=== PATIENT | female | born 1965 | race Caucasian/White ===

== ENCOUNTER 2017-05-07 19:37 | Emergency (ER) | payer MEDICAID ==
[~2017-05-07] VITALS: Ht 147.3 cm; Wt 71.5 kg
[~2017-05-07 19:37] MED LIST: AMLO-145 PO; AMLO5TAB4 PO; ASPI81TA3 PO; CYAN500T46 PO; IBUP-1542 PO; METO-448 PO; PANT40TA4 PO; PEN500 PO; TRAM50TA2 PO; UBID100C19 PO
[2017-05-07 19:46] VITALS: Ht 147.3 cm; Wt 71.5 kg
[2017-05-07] MEDS ORDERED: LORAZEPAM 2 MG INJ IV ONE (20:30)
[2017-05-07 21:15] LABS: BASOPHIL # 0.1 10^3/ul (0.0-0.1); BASOPHILS % 0.7 % (0.0-2.0); EOSINOPHILS # 0.2 10^3/ul (0.0-0.5); EOSINOPHILS % 2.2 % (0.0-7.0); HEMATOCRIT 42.8 % (37.0-47.0); LYMPHOCYTES # 2.8 10^3/ul (0.8-2.9); LYMPHOCYTES % 25.4 % (15.0-51.0); MEAN CORPUSCULAR HEMOGLOBIN 25.9 pg (29.0-33.0); MEAN CORPUSCULAR HGB CONC 32.7 g/dl (32.0-37.0); MEAN CORPUSCULAR VOLUME 79.3 fl (82.0-101.0); MEAN PLATELET VOLUME 9.5 fl (7.4-10.4); MONOCYTE # 1.3 10^3/ul (0.3-0.9); MONOCYTES % 11.9 % (0.0-11.0); NEUTROPHIL # 6.6 10^3/ul (1.6-7.5); NEUTROPHILS % 59.5 % (39.0-77.0); PLATELET COUNT 397 10^3/UL (140-415); RED CELL DISTRIBUTION WIDTH 14.5 % (11.5-14.5); WHITE BLOOD COUNT 11.1 10^3/ul (4.8-10.8)
--- NOTE | 2017-05-07 21:29 | RADRPT ---
PROCEDURE: XR Chest. CLINICAL INDICATION: Chest pain TECHNIQUE: AP Portable chest. COMPARISON: 08/13/2015 FINDINGS: The cardiomediastinal silhouette is normal. The lungs are clear. The osseous structures are unrema rkable. IMPRESSION: No acute findings. RPTAT: HIKT .Kyle Parker MD, MD Date Time Electronically viewed and signed by .Kyle Parker MD, on 05/07/2017 21:29 .T/
[2017-05-07 21:33] LABS: ALBUMIN 4.8 g/dl (3.3-4.9); ALBUMIN/GLOBULIN RATIO 1.26; BILIRUBIN,INDIRECT 0.1 mg/dl (0-1.1); BILIRUBIN,TOTAL 0.1 mg/dl (0.2-1.3); CALCIUM 9.7 mg/dl (8.4-10.2); CREATINE KINASE 208 IU/L (23-200); CREATININE 0.89 mg/dl (0.44-1.00); POTASSIUM 4.4 mmol/L (3.5-5.1); TOTAL PROTEIN 8.6 g/dl (6.1-8.1)
[2017-05-07 21:40] LABS: ADD SCAN DIFF NO
[2017-05-07 21:45] LABS: CK-MB 2.64 ng/ml (0.0-2.4)
[2017-05-07 21:47] LABS: TROPONIN-I < 0.012 ng/ml (0.00-0.12)
[2017-05-07 22:15] VITALS: BP 109/60; RESP 17
[2017-05-07] MEDS ORDERED: KETOROLAC 15 MG INJ IV STA (22:41)
--- NOTE | 2017-05-07 22:41 | ERD ---
ER Documentation Chief Complaint Date/Time DATE: 05/07/17 TIME: 22:31 Chief Complaint LEFT ARM RADIATES THROUGHOUT BODY, NUMBNESS TINGLING, BLURRY VISION. HPI 51-year-old hypertensive female ambulatory to the ED complaining of a 3 day history of generalized malaise with cramps to her entire body with numbness and tingling especially to her hands which are cramping up. She has had similar symptoms for approximately 6 months with multiple previous evaluations. Symptoms have been occurring daily for several hours but for the last 3 days have not resolved. Admits to feeling anxious. Denies chest pain, palpitations or shortness of breath. No abdominal pain, nausea, vomiting, diarrhea or constipation. Denies headache, neck or back pain. No eye pain but symptoms are sometimes accompanied by blurry vision. She has been unable to sleep for the last 3 days. No fevers or chills. ROS All systems reviewed and are negative except as per history of present illness. Medications Home Meds Active Scripts Tramadol HCl (Tramadol HCl) 50 Mg Tablet, 50 MG PO Q4 Y for PAIN, #20 TAB no conducir o carmenemaryr mashaylaaria misky est tomando yen medicamento Prov:SARAHI SALVADOR PA-C 07/07/16 Ibuprofen* (Motrin*) 600 Mg Tab, 600 MG PO Q6, #30 TAB Prov:UMANG WORKMAN 12/17/15 Penicillin V Potassium* (Penicillin V K*) 500 Mg Tab, 500 MG PO BID for 7 Days, TAB Prov:UMANG WORKMAN 12/17/15 Amlodipine Besylate* (Amlodipine Besylate*) 5 Mg Tablet, 5 MG PO DAILY, #30 TAB Prov:NATASHA AGUILAR PA-C 11/04/15 Metoprolol Tartrate* (Lopressor*) 25 Mg Tab, 25 MG PO BID, #60 TAB Prov:NATASHA AGUILAR PA-C 11/04/15 Pantoprazole* (Pantoprazole*) 40 Mg Tabec, 40 MG PO DAILY@06 for 30 Days Prov:MICHAEL CLINE 08/14/15 Amlodipine Besylate* (Norvasc*) 5 Mg Tab, 5 MG PO DAILY for 30 Days, 1 Refill Prov:MICHAEL CLINE 08/14/15 Metoprolol Tartrate* (Lopressor*) 25 Mg Tab, 25 MG PO BID for 30 Days, TAB 1 Refill Prov:MICHAEL CLINE 08/14/15 Reported Medications Ubidecarenone* (Co Q-10*) 100 Mg Capsule, 100 MG PO DAILY, CAP 05/13/15 Cyanocobalamin* (Vitamin B12*) 500 Mcg Tab, 500 MCG PO DAILY, TAB 05/13/15 Aspirin* (Aspirin* Chew) 81 Mg Tab.chew, 81 MG PO DAILY, TAB.CHEW 05/13/15 Allergies Allergies: Coded Allergies: No Known Allergy (Unverified , 05/07/17) PMhx/Soc Reviewed in chart. As per HPI Medical and Surgical Hx: pt denies Surgical Hx History of Surgery: No Anesthesia Reaction: No Hx Neurological Disorder: No Hx Respiratory Disorders: No Hx Cardiac Disorders: Yes (HTN ) Hx Psychiatric Problems: No Hx Miscellaneous Medical Probl: No Hx Alcohol Use: No Hx Substance Use: No Hx Tobacco Use: No FmHx No stroke or cancer Physical Exam Vitals Vital Signs Date Time Temp Pulse Resp B/P Pulse Ox O2 Delivery O2 Flow Rate FiO2 05/07/17 22:15 17 109/60 100 Room Air 05/07/17 19:46 98.8 91 17 140/80 95 Physical Exam Const: Alert, anxious in moderate distress. Head: Atraumatic Eyes: Normal Conjunctiva ENT: Normal External Ears, Nose and Mouth. Neck: Full range of motion..~ No meningismus. Resp: Clear to auscultation bilaterally Cardio: Regular rate and rhythm, no murmurs Abd: Soft, non tender, non distended. Normal bowel sounds Skin: No petechiae or rashes Back: No midline or flank tenderness Ext: Left shoulder point tenderness posteriorly. Full range of motion. No swelling, ecchymosis or bruising. Distal neurovascular intact. Carpopedal spasm. Neur: Awake and alert Psych: Anxious. Denies depression. Result Diagram: 05/07/17205805/07/172058 Results 24 hrs Laboratory Tests Test 05/07/17 20:59 White Blood Count 11.110^3/ul Red Blood Count 5.4010^6/ul Hemoglobin 14.0g/dl Hematocrit 42.8% Mean Corpuscular Volume 79.3fl Mean Corpuscular Hemoglobin 25.9pg Mean Corpuscular Hemoglobin Concent 32.7g/dl Red Cell Distribution Width 14.5% Platelet Count 60770^3/UL Mean Platelet Volume 9.5fl Neutrophils % 59.5% Lymphocytes % 25.4% Monocytes % 11.9% Eosinophils % 2.2% Basophils % 0.7% Nucleated Red Blood Cells % 0.0/100WBC Neutrophils # 6.610^3/ul Lymphocytes # 2.810^3/ul Monocytes # 1.310^3/ul Eosinophils # 0.210^3/ul Basophils # 0.110^3/ul Nucleated Red Blood Cells # 0.010^3/ul Sodium Level 139mmol/L Potassium Level 4.4mmol/L Chloride Level 95mmol/L Carbon Dioxide Level 28mmol/L Anion Gap 20 Blood Urea Nitrogen 16mg/dl Creatinine 0.89mg/dl Glucose Level 107mg/dl Calcium Level 9.7mg/dl Total Bilirubin 0.1mg/dl Direct Bilirubin 0.00mg/dl Indirect Bilirubin 0.1mg/dl Aspartate Amino Transf (AST/SGOT) 78IU/L Alanine Aminotransferase (ALT/SGPT) 87IU/L Alkaline Phosphatase 131IU/L Creatine Kinase 208IU/L Creatine Kinase Index 1.3 Creatinine Kinase MB (Mass) 2.64ng/ml Troponin I < 0.012ng/ml Total Protein 8.6g/dl Albumin 4.8g/dl Globulin 3.80g/dl Albumin/Globulin Ratio 1.26 Current Medications Medications (Trade) Dose Ordered Sig/Moises Route PRN Reason Start Time Stop Time Status Last Admin Dose Admin Lorazepam (Ativan) 1 mg ONCE ONCE IV 05/07/17 20:30 05/07/17 20:31 DC 05/07/17 20:43 EKG: Time: 20:31. Sinus tachycardia.. Ventricular rate 102, normal NC and QRS intervals. No acute ST segment elevation or depression. No axis deviation or ectopy. EP Impression: Sinus tachycardia otherwise normal EKG Procedures/MDM DOCUMENTS REVIEWED: ED nurse, prior ED, prior records REEXAMINATION/REEVALUATION: Time: 22:30. Patient sleeping but upon awakening is now complaining of severe left upper posterior shoulder pain exacerbated by movement. [employer] DECISION MAKIN-year-old hypertensive female ambulatory to the ED complaining of a 3 day history of generalized malaise with cramps to her entire body. In 2014 she was admitted for hypertensive urgency cardiac workup was negative. CT scan of the brain was also unremarkable at that time. She has no new focal deficits or other indication for neuroimaging. No electrolyte abnormalities. Patient presents with symptoms consistent with anxiety disorder and panic attacks. Patient also with musculoskeletal left shoulder pain. No acute injury or indication for imaging. Stable for discharge with anxiolytics, analgesics and outpatient follow-up as counseled. Counseled patient and family regarding diagnostic workup, diagnosis and need for followup. Understands to return to ED if symptoms recur, worsen or any other concerns. Departure Diagnosis: Primary Impression: Anxiety Additional Impression: Left shoulder pain Chronicity: unspecified Qualified Code: M25.512 - Left shoulder pain, unspecified chronicity Condition: Serious ARCADIO ZARATE MD May 07, 2017 22:41
[2017-05-07] MEDS ORDERED: LORA-441 PO (22:49)
[2017-05-07] MEDS ORDERED: IBUP-1542 PO (22:49)
== END 2017-05-07 23:27 | disposition home or self-care (01) ==
LOC: FTE 19:37 → E/R 23:27
DX: F41.9 Anxiety disorder, unspecified (principal); R40.2252 Coma scale, best verbal response, oriented, at arrival to emergency department; M25.512 Pain in left shoulder; I10 Essential (primary) hypertension; R40.2142 Coma scale, eyes open, spontaneous, at arrival to emergency department; R40.2362 Coma scale, best motor response, obeys commands, at arrival to emergency department; Z79.82 Long term (current) use of aspirin
CPT/HCPCS: 71010; 80053; 82550; 82553; 84484; 85025; J1885; J2060; 36415; 93005; 96374; 96375